=== PATIENT | female | born 1985 | race Caucasian/White ===

== ENCOUNTER 2020-03-15 00:01 | Inpatient (IN) ==
[~2020-03-15 00:01] MED LIST: OXYTOCIN/0.9 % SODIUM CHLORIDE 30 UNITS/500 ML BAG IV ONE
[2020-03-15] MEDS ORDERED: ONDANSETRON 4 MG TAB.RAPDIS PO PRN (00:02)
[2020-03-15] MEDS ORDERED: RINGER'S SOLUTION,LACTATED 1,000 ML IV ONE ×2 (00:02→11:00)
[2020-03-15] MEDS ORDERED: OXYTOCIN/0.9 % SODIUM CHLORIDE 30 UNITS/500 ML BAG IV ONE ×2 (00:02→11:10)
[2020-03-15] MEDS ORDERED: DEXTROSE 5%-LACTATED RINGERS 1,000 ML IV PRN (00:02)
[2020-03-15] MEDS: PENICILLIN G POTASSIUM 5 MILLIONUNT in DEXTROSE 5 % IN WATER 100 ML IV ONE ×4 (00:44→02:13)
[2020-03-15] MEDS ORDERED: BUPIVACAINE HCL/0.9 % NACL/PF 250 ML EP PRN (02:18)
[2020-03-15] MEDS ORDERED: NALOXONE HCL 1 MG/1 ML SYRG IV PRN (02:18)
[2020-03-15] MEDS ORDERED: ONDANSETRON HCL/PF 2 MG/ML VIAL IV PRN (02:18)
[2020-03-15] MEDS ORDERED: fentaNYL CITRATE/PF 50 MCG/ML AMPUL IT SCH (02:30)
--- NOTE | 2020-03-15 03:05 | HP ---
Chief Complaint - Chief Complaint Date of Service: 03/15/20 Time of Service: 02:30 Chief Complaint: induction of labor for epilepsy and fast labors History of Present Illness: 34 yo at 39 weeks presents for induction of labor due to epilepsy and fast labors. This complicated by asthma, epilepsy, history of PP hemorrhage, and history of GHTN. Rh positive Rubella immune GBS positive Medical History (Last Updated 03/15/20 @ 00:31 by Tova Sena RN) History of hemorrhage (Chronic) History of gestational hypertension (Chronic) Acne Onset Date: Unknown Acute allergic rhinitis due to pollen Onset Date: Unknown Asthma Onset Date: Unknown high school-sports induced. no hospitalizations. Body piercing Onset Date: Unknown Dust allergy Onset Date: Unknown Hemorrhoids Onset Date: Unknown Varicose veins of both lower extremities Onset Date: Unknown Wears glasses Onset Date: Unknown Gestational hypertension Onset Date: 02/22/14 Group B Streptococcus carrier, delivered, current hospitalization (Resolved) Hx of skin cancer, basal cell Onset Date: ~2015 face x2-2016 & 2017 Knee injury Onset Date: Unknown middle school. torn cartilage right knee. Obstetric vaginal laceration, delivered, current hospitalization (Resolved) hemorrhage, delivered, current hospitalization (Resolved) Onset Date: ~2017 Superficial thrombophlebitis Onset Date: ~07/2017 left leg Urticaria Onset Date: Unknown Abnormal Pap smear of cervix Onset Date: ~2009 In [place] Epilepsy Onset Date: ~2003 1 grand mal seizure. now has partial focal seizures. Surgical History: Surgical History (Last Reviewed 03/15/20 @ 00:22 by Tova Sena RN) H/O arthroscopy of knee Onset Date: ~1999 right knee History of appendectomy Onset Date: 06/16/11 laparoscopic-Tinguely History of colposcopy Onset Date: ~2009 negative History of laparoscopic cholecystectomy Onset Date: 04/20/14 Tinguely Status post endovenous radiofrequency ablation of saphenous vein Onset Date: ~08/2018 bilateral-removed vein on left left. Vaginal delivery (Resolved) [place] teeth extracted Onset Date: ~2002 Family History: Family History (Last Reviewed 03/15/20 @ 00:22 by Tova Sena RN) Mother Raynauds syndrome Father Hypertension Hyperlipemia COPD (chronic obstructive pulmonary disease) Brother Hypercholesterolemia Grandmother Diabetes CHF (congestive heart failure) COPD (chronic obstructive pulmonary disease) Uncle Hyperlipemia Aunt Hypertension Social History: (Last Reviewed 03/15/20 @ 00:23 by Tova Sena RN) Social History: adopted: No shelter: No Marital status: household members: spouse number of children: 2 current occupational status: employed current occupation: Teacher current occupational exposures/hazards: No Highest level of school completed/degree received: Bachelor's degree Sexually Active: Yes Service: No Tobacco: Smoking Status: Never smoker second hand exposure: No Alcohol: alcohol intake: current alcohol intake frequency: holiday/special occasion details: No alcohol since + UPT Substance Use: substance use type: does not use Dietary Habits: caffeine: Yes caffeine comment: 60-180mg/day Type: other Exercise: frequency: 1-2 times per week Suyapa/Jew: agree to transfusion: Yes Review Of Systems (GEN) - Review of Systems Generalized/Overall Review: Present: No Symptoms Reported EENTM: Present: No Symptoms Reported Respiratory: Present: No Symptoms Reported Cardiac: Present: No Symptoms Reported Abdominal: Present: No Symptoms Reported Genitourinary: Present: No Symptoms Reported Musculoskeletal: Present: No Symptoms Reported Neurological: Present: No Symptoms Reported Skin: Present: No Symptoms Reported Endocrine: Present: No Symptoms Reported Allergies/Adverse Reactions: Allergies Allergy/AdvReac Type Severity Reaction Status Date / Time No Known Allergies Allergy Verified 03/08/20 15:10 Home Medications: HOME MEDICATIONS Folic Acid 1 mg PO DAILY 02/14/14 [Last Taken 03/14/20] lamoTRIgine [Lamictal] 400 mg PO BID 02/14/14 [Last Taken 03/14/20] acetaminophen 500 mg tablet 1,000 mg PO Q6H PRN tab 08/26/19 [Last Taken Unknown] docosahexaenoic acid 200 mg capsule 200 mg PO DAILY cap 08/26/19 [Last Taken 03/14/20] prenat.vits,josh,[id number] 1 tab PO DAILY 08/26/19 [Last Taken 03/14/20] aspirin 81 mg tablet,delayed release 81 mg PO DAILY 10/21/19 [Last Taken 03/14/20] Exam - Exam Vital Signs: Vital Signs - Last Taken Temp 37.1 C 03/15/20 00:30 Pulse 74 03/15/20 00:30 Resp 18 03/15/20 00:30 BP 121/75 03/15/20 00:30 Constitutional: Present: Alert, Oriented x3, Cooperative ENT Exam: Present: hearing grossly normal Breasts: Present: Exam deferred Respiratory: Present: lungs clear, no respiratory distress Cardiovascular/Chest: Present: normal peripheral pulses, regular rate, rhythm, no edema Abdomen: Present: soft, nontender, no rebound tenderness, other - gravid /Rectal: Present: Other - Cervix - 4/25/-3 Extremity: Present: no pedal edema, no calf tenderness Skin Exam: Present: normal color, warm/dry, no cyanosis Lymphatic: Present: no adenopathy Neurologic: Present: alert, normal mood/affect, oriented x 3 Appearance: Present: appropriate appearance, appropriate insight Eye contact: Present: cooperative, good eye contact Thoughts: Present: normal thought pattern, normal mood /affect Assessment/Plan - Assessment/Plan (1) Epilepsy without status epilepticus, not intractable Assessment: Admit for pitocin induction of labor. IV PCN per GBS protocol. Epidural PRN. Problem: Chronic Qualifiers: Epilepsy type: generalized idiopathic Qualified Code(s): G40.309 - Generalized idiopathic epilepsy and epileptic syndromes, not intractable, without status epilepticus (2) Group B streptococcal carriage complicating Problem: Acute (3) History of hemorrhage Problem: Chronic (4) History of gestational hypertension Problem: Chronic
--- NOTE | 2020-03-15 03:15 | ANES ---
Anesthesia Pre Procedure Eval Vitals/Labs: Last Vital Signs Temp 37.1 C 03/15/20 00:30 Pulse 74 03/15/20 00:30 Resp 18 03/15/20 00:30 BP 121/75 03/15/20 00:30 HOME MEDICATIONS Folic Acid 1 mg PO DAILY 02/14/14 [Last Taken 03/14/20] lamoTRIgine [Lamictal] 400 mg PO BID 02/14/14 [Last Taken 03/14/20] acetaminophen 500 mg tablet 1,000 mg PO Q6H PRN tab 08/26/19 [Last Taken Unknown] docosahexaenoic acid 200 mg capsule 200 mg PO DAILY cap 08/26/19 [Last Taken 03/14/20] prenat.vits,josh,lmr-[id number] 1 tab PO DAILY 08/26/19 [Last Taken 03/14/20] aspirin 81 mg tablet,delayed release 81 mg PO DAILY 10/21/19 [Last Taken 03/14/20] Allergies/Adverse Reactions: Allergies Allergy/AdvReac Type Severity Reaction Status Date / Time No Known Allergies Allergy Verified 03/08/20 15:10 - Planned Procedure Planned Procedure: medical induction epilepsy 39 weeks Medication List Reviewed:: Yes Allergies Verified: Yes Medical History (Last Reviewed 03/15/20 @ 03:14 by Carlos Trejo CRNA) History of hemorrhage (Chronic) History of gestational hypertension (Chronic) Acne Onset Date: Unknown Acute allergic rhinitis due to pollen Onset Date: Unknown Asthma Onset Date: Unknown high school-sports induced. no hospitalizations. Body piercing Onset Date: Unknown Dust allergy Onset Date: Unknown Hemorrhoids Onset Date: Unknown Varicose veins of both lower extremities Onset Date: Unknown Wears glasses Onset Date: Unknown Gestational hypertension Onset Date: 02/22/14 Group B Streptococcus carrier, delivered, current hospitalization (Resolved) Hx of skin cancer, basal cell Onset Date: ~2016 face x2-2016 & 2017 Knee injury Onset Date: Unknown middle school. torn cartilage right knee. Obstetric vaginal laceration, delivered, current hospitalization (Resolved) hemorrhage, delivered, current hospitalization (Resolved) Onset Date: ~2017 Superficial thrombophlebitis Onset Date: ~07/2017 left leg Urticaria Onset Date: Unknown Abnormal Pap smear of cervix Onset Date: ~2009 In [place] Epilepsy Onset Date: ~2003 1 grand mal seizure. now has partial focal seizures. Surgical History (Last Reviewed 03/15/20 @ 03:14 by Carlos Trejo CRNA) H/O arthroscopy of knee Onset Date: ~1999 right knee History of appendectomy Onset Date: 06/16/11 laparoscopic-Tingu[place] History of colposcopy Onset Date: ~2009 negative History of laparoscopic cholecystectomy Onset Date: 04/20/14 [place]ingu[place] Status post endovenous radiofrequency ablation of saphenous vein Onset Date: ~08/2018 bilateral-removed vein on left left. Vaginal delivery (Resolved) [place] teeth extracted Onset Date: ~2002 Family History (Last Reviewed 03/15/20 @ 03:14 by Carlos Trejo CRNA) Mother Raynauds syndrome Father Hypertension Hyperlipemia COPD (chronic obstructive pulmonary disease) Brother Hypercholesterolemia Grandmother Diabetes CHF (congestive heart failure) COPD (chronic obstructive pulmonary disease) Uncle Hyperlipemia Aunt Hypertension - Family Anesthesia History Family History:: no untoward family reactions to anesthesia, no familial bleeding tendencies, no family history of clotting disorders, no family history of premature - Airway/Neck/Teeth Within Normal Limits:: Yes Teeth Condition: intact Neck Exam: full range of motion Mallampatti Score: 2 Thyromental (T-M) distance: > 6 cm Mandibulo Hyoid distance: > 3 cm - Respiratory Respiratory Physical: lungs clear Smoking Status: Never smoker Sleep Apnea currently treated: No Sleep Apnea by current assessment: No - Cardiovascular Tolerate Activity: Fair Heart Sounds: S1 & S2, Regular - Gastrointestinal NPO since: 2400 - Anesthesia Assessment and Plan ASA Class: PS, II, E Anesthesia Type Plan: Epidural - CSE for labor analgesia
--- NOTE | 2020-03-15 03:31 | ANES ---
Post Anesthesia Discharge - Transfer of Care Transfer of Care handoff given to nurse: Yes - Discharge from PACU Discharge from PACU when meets criteria: Yes - Comfortable post CSE
--- NOTE | 2020-03-15 03:33 | ANES ---
Anesthesia Procedure Note Procedure Note: ANESTHESIA PROCEDURE NOTE Date of Procedure: 02/24/2020 Time of procedure: 3:15 AM. Performed by: EUGENE Flower CRNA, MSN Jockey Valet: Susan Hernández RN. Preprocedure diagnosis: Active labor, labor pain. Post procedure diagnosis: Same. Procedure:Epidural for labor analgesia L3 4. Indications: Labor pain. Findings: See below. Details of the procedure: The patient was placed on the side of the bed in sitting positionand prepped with DuraPrep then draped in a sterile fashion. Lidocaine 1% was infiltrated to the skin and subcutaneous tissues at the level of the L3-4 interspace. An 18-gauge Touhy needle was used to approach the epidural space with loss of resistance technique. Once loss of resistance was achieved a 27-gauge spinal needle was passed through the epidural needle and CSF was contacted. After CSF returned, 20 mcg of fentanyl was injected in the spinal needle was removed the epidural catheter was then threaded approximately 4 cm in the epidural needle was removed. The catheter was taped in place and after careful aspiration 3 mL of 1.5% lidocaine with 1-200,000 epinephrine was injected without change in maternal heart rate or sensorium. . EBL: Minimal. Fluids: N/A. Specimen: N/A. Post procedure condition: The patient tolerated the procedure well with good relief. No complications were noted. Thank you for this consultation. Carlos Trejo CRNA, ARNP, MSN
--- NOTE | 2020-03-15 03:43 | ANES ---
Post Anesthesia Assessment - Vital Signs Vitals: Last Vital Signs Temp 37.1 C 03/15/20 00:30 Pulse 74 03/15/20 00:30 Resp 18 03/15/20 00:30 BP 121/75 03/15/20 00:30 Airway Patency: Normal - Mental Status Level Of Consciousness: Awake, Alert, Appropriate - Pain Level Pain Score: 0 - N/V Assessment Nausea/Vomiting Presence: None Dehydration:: No
[2020-03-15] MEDS: PENICILLIN G POTASSIUM 2.5 MILLIONUNT in DEXTROSE 5 % IN WATER 100 ML IV SCH ×4 (03:50→09:19)
--- NOTE | 2020-03-15 05:00 | PN ---
Progess Note - Interim Date: 03/15/20 Time: 04:58 Narrative: 03/15/20 04:58 Patient comfortable with epidural Vital signs stable. Pitocin at 6 mu/min. FHT: 140 baseline, reassuring contractions q 2-3 min Cervix: 5/50/-3, AROM-clear Impression: Intrauterine at 39 weeks induction of labor for epilepsy with history of fast labors. Plan: Continue present plan
--- NOTE | 2020-03-15 10:09 | PN ---
Progess Note - Interim Date: 03/15/20 Time: 10:08 Narrative: 03/15/20 10:08 Patient comfortable with epidural Vital signs stable. Pitocin at 10 mu/min. FHT: 135 baseline, reassuring contractions q 2-3 min Cervix: 9/80/-2 Impression: Intrauterine at 39 weeks induction of labor for epilepsy with history of fast labors. Plan: Continue present plan
[2020-03-15] MEDS ORDERED: BENZOCAINE/MENTHOL 81 SPRAY CAN TP PRN (11:10)
[2020-03-15] MEDS ORDERED: BISACODYL 10 MG SUPP.RECT RC PRN (11:10)
[2020-03-15] MEDS ORDERED: GLYCERIN/WITCH HAZEL LEAF 40 APPL BOX TP PRN (11:10)
[2020-03-15] MEDS ORDERED: SENNOSIDES 8.6 MG TABLET PO PRN (11:10)
[2020-03-15] MEDS ORDERED: IBUPROFEN 800 MG TABLET PO PRN (11:10)
[2020-03-15] MEDS ORDERED: HYDROCORTISONE 30 APPL TUBE TP PRN (11:10)
--- NOTE | 2020-03-15 11:10 | OR ---
Operative Report - Dictated Report Narrative: Spontaneous vaginal delivery of viable male at 1055 on 03/15/2020 with Apgars 8 and 9, weighing 4015 g in SHELBY position. Cord clamping delayed approximately 1 minute Placenta delivered complete, intact, with three vessel cord Estimated blood loss: 100 mL Anesthesia: Epidural Lacerations: 1 cm first-degree vaginal laceration with no repair needed. History for History for Definition: * The number of deliveries resulting in a live the patient experienced prior to current hospitalization * The previous delivery of live twins or any live multiple gestation is considered one live event. *If primagravida or nulliparous is documented select zero for the number of previous live births. Live Events: Live Events: 2
[2020-03-15] MEDS: oxyCODONE HCL/ACETAMINOPHEN 1 TAB TABLET PO PRN ×2 (12:08→15:11)
[2020-03-15] MEDS: lamoTRIgine 100 MG TABLET PO SCH (20:14)
[2020-03-15] MEDS: IBUPROFEN 800 MG TABLET PO PRN (20:14)
[2020-03-15] MEDS: DOCUSATE SODIUM 100 MG CAPSULE PO SCH (20:15)
[2020-03-16] MEDS: IBUPROFEN 800 MG TABLET PO PRN (06:42)
[2020-03-16 07:40] VITALS: BP 133/74
[2020-03-16] MEDS ORDERED: DOCOSAHEXANOIC ACID 200 MG PO SCH (09:00)
[2020-03-16] MEDS ORDERED: PRENATAL VITS96/IRON FUM/FOLIC 1 TAB TABLET PO SCH (09:00)
--- NOTE | 2020-03-16 09:05 | PN ---
Subjective - Date and Time Seen Date: 03/16/20 Time: 09:02 Objective - Vitals Vitals: Last Vital Signs Temp 36.4 C 03/16/20 07:15 Pulse 67 03/16/20 07:15 Resp 18 03/16/20 07:15 BP 133/74 03/16/20 07:15 Pulse Ox 98 03/16/20 07:15 Patient denies complaints. Bottlefeeding Lochia wnl abdomen - soft, nontender Uterus -firm, at umbilicus - 1 No calf tenderness Impression: day #1 - s/p spontaneous vaginal delivery. Epilepsy- stable. Baby transferred to [facility] for respiratory issues. Mother desires early discharge. Plan: Continue routine care. Routine discharge instructions. Assessment/Plan - Problems/Diagnosis (1) Epilepsy without status epilepticus, not intractable Problem: Chronic Qualifiers: Epilepsy type: generalized idiopathic Qualified Code(s): G40.309 - Generalized idiopathic epilepsy and epileptic syndromes, not intractable, without status epilepticus (2) Group B streptococcal carriage complicating Problem: Acute (3) History of hemorrhage Problem: Chronic (4) History of gestational hypertension Problem: Chronic
[2020-03-16] MEDS: DOCUSATE SODIUM 100 MG CAPSULE PO SCH (10:39)
[2020-03-16] MEDS: lamoTRIgine 100 MG TABLET PO SCH (10:40)
== END 2020-03-16 11:09 | disposition home or self-care (01) | DRG 807 ==
LOC: OB 00:01
PROVIDERS: ADMIT Obstetrics & Gynecology; ATTEND Obstetrics & Gynecology